=== PATIENT | female | born 1960 | race Caucasian/White ===

== ENCOUNTER 2024-12-12 10:04 | Outpatient (CLI) | payer BC, SELFPAY ==
--- OUTSIDE RECORDS SUMMARY | 2024-12-12 11:06 | XMS_ITS | Clinical Summary ---
Author Organization [facility] Address [address] [place] [id number] Care Team Providers Care Package Designer Name Role Phone Pcp, No Primary Care Provider Unavailabl e Allergies No known active allergies Medications multivitamin (MVI) tablet Take 1 tablet by mouth once daily. 0 2 Active fish oil-omega-3 fatty acids (FISH OIL) 1,200-360 mg cap Take 1 capsule by mouth once daily. 0 2 Active cyanocobalamin (VITAMIN B-12) 1,000 mcg tablet Take 1 tablet by mouth once daily. 0 2 Active polyethylene glycol-electrol yte 236-22.74-6.74 -5.86 gram suspensionIndic ations:Encounte r for screening colonoscopy Drink 2 liters (half the bottle) the day before the procedure and 2 liters (half the bottle) 6 hours prior to procedure. 4000 mL 5 Active varenicline (CHANTIX STARTING MONTH BOX) 0.5 (11)-1 (42) mg tablet Take one 0.5mg tab daily for 3 days, then one 0.5mg tab twice daily for 4 days, then one 1mg tab twice daily. 1 Packet 0 3 12/06/19 25 Discontinu ed(*Med complete/R egimen complete/L evel of care change) varenicline (CHANTIX CONTINUING MONTH BOX) 1 mg tablet Take 1 mg by mouth 2 times daily with meals. 60 tablet 3 3 12/06/19 25 Discontinu ed(*Med complete/R egimen complete/L evel of care change) Active Problems Problem Noted Date Diagnosed Date Adenomatous colon polyp 09/06/2018 Overview (02/18/2019): Colonoscopy 08/2018 polyp on the appendiceal orifice, repeat in 6 months at [facility] Colonoscopy 01/2019 polyps, repeat in 3 years Resolved Problems Problem Noted Date Diagnosed Date Resolved Date Menorrhagia 04/08/2012 12/05/2024 Tobacco use disorder 04/08/2012 025 Encounters Date Type Department Care Team Description 12/12/2024 Travel 12/05/2024 3:55 PM CDT Office Visit [facility] [address] [place] [address] Henrry Sellers MD Preoperative Exam (Colonoscopy, Dr. Steward, [facility], 12/12/24) 12/05/2024 Travel 2024 Telephone [facility] [address] [place] [address] Nam Steward MD Screening from Last 3 Months Immunizations Immunization Administration Dates Next Due Influenza A (H1N1), Inactivated (Age >=3 Years) 05/03/2009 Influenza, IIV3 (Age >=3 years) 03/25/2012 Influenza, IIV4 04/19/2021 Measles 11/01/1976 Family History Medical History Relation Name Comments Good Health Daughter 1 Good Health Daughter 2 Good Health Son Cancer-colon No Family History Relation Name Status Comments Daughter 1 Alive Daughter 2 Alive Son Alive Social History Tobacco Use Types Packs/Day Years Used Date Smoking Tobacco: Former Smokeless Tobacco: Never Tobacco Cessation:Counseling Given: Yes Alcohol Use Standard Drinks/Week Comments No 0 (1 standard drink = 0.6 oz pur e alcohol) Social Connections Answer Date Recorded Do you often feel lonely or isolated from those around you? 0 12/05/2024 Financial Resource Strain Answer Date R ecorded Difficulty of Paying Living Expenses 3 12/05/2024 Difficulty of Paying Living Expenses Not on file 12/05/2024 Food Insecurity Answer Date Recorded Do you worry your food will run out before you are able to buy more? 1 12/05/2024 Transportation Needs Answer Date Record ed Does lack of transportation keep you from medica l appointments? 1 12/05/2024 Does lack of transportation keep you from work, meetings or getting things that you need? 1 12/05/2024 Housing Stability Answer Date Recorded What is your housing situation today? 1 12/05/2024 Utilities Answer Date Recorded Do you have trouble paying f or utilities (for example, heat, electricity, water, phone)? 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 Gender Identity Not on file Sexual Orientation Not on file Obstetrics History Para Term AB IAB SAB Ectopic Multiple Livin g Live Births 3 3 3 Date Outcome GA Total Labor Labor/2nd/3rd Weight Sex Type Anes PTL Alena A1 A5 Name Clin Para Para Para Last Filed Vital Signs Vital Sign Reading Time Taken Comments Blood Pressure 117/80 12/05/2024 3:18 PM CDT Pulse 87 12/05/2024 3:18 PM CDT Temperature 36.8 C (98.2 F) 12/05/2024 3:18 PM CDT Respiratory Rate - - Oxygen Saturation 93% 12/05/2024 3:18 PM CDT Inhaled Oxygen Concentration - - Weight 75.4 kg (166 lb 4.8 oz) 12/05/2024 3:18 P M CDT Height 156.2 cm (5' 1.5) 12/05/2024 3:18 PM CDT Body Mass Index 30.91 12/05/2024 3:18 PM CDT Plan of Treatment Health Maintenance Due Date Last Done Comments Tdap 1972 Depression screening for age 12+ 1973 HIV for age 15-65 1976 Hepatitis C screening for age 18-79 11/25/1979 Tetanus booster 1981 Lipids for age 45-75 2006 Mammogram for age 45-75 2006 Pneumococcal series for age 50+ (1 of 1 - PCV) 11/25/2011 Zoster (shingles) series for age 50+ (1 of 2) 11/25/2011 Pap test for age 21-65 04/08/2015 04/08/2012 RSV vaccine for adults or (1 - Risk 60-74 years 1-dose series) 2021 Colonoscopy through age 75 02/17/202212/12, 02/17/2019, 02/17/2019, Additional history exists COVID-19 vaccine series ( season) 2024 07/27/2020, 06/28/2020 Influenza Vaccine (Season Ended) 2025 04/19/2021, 03/25/2012 BMI (ht and wt on same day) for age 18+ 12/05/2025 12/05/2024 Hepatitis B series for 19+ Aged Out N o longer eligible based on patient's age to complete this topic Procedures Procedure Name Priority Date/Time Associated Diagnosis Comments COLONOSCOPY SCREENING Routine 12/12/2024 7:18 AM CDT Encounter for screening colonoscopy SUPERVISOR CO[employer] HANDLING THIN PREP PAP SCREEN IMAGED Routine 04/08/2012 5:10 PM CDT Screening for malignant neoplasm of the cervix from Last 3 Months or Most Recently Relevant to Health Maintenance Results * COLONOSCOPY SCREENING (02/17/2019 12:00 AM CDT) Nam Steward MD GI PROCEDURE ORD Edited R esult - Final * SUPERVISOR COAL HANDLING THIN PREP PAP SCREEN IMAGED (04/08/2012 5:10 PM CDT) CYTOLOGY CYTOPATHOLOGY REPORT [facility] Status: Final Status [id number] CLINICAL INFORMATION Last Date of LMP :02/16/12 Last Pap Date :unknown Last Pap Result :NIL ABN [place]/Bx Past 5 YRS :None Hormone Usage :None Menstrual Status :Regular Periods [place]/Bx done today :No Additional Information :None given HPV Request :HPV if ASCUS SPECIMEN SOURCE :Cervical/vaginal ThinPrep Vial, screening SPECIMEN ADEQUACY :Satisfactory for evaluation Endocervical component present. INTERPRETATION/RES ULT Negative for intraepithelial lesion or malignancy (NIL) Cytology 1st Screener :oliver Signed by :oliver This specimen was screened by the FDA approved ThinPrep Imaging System and manually reviewed. NOTE: The Pap test is a screening technique, not a diagnostic procedure. It is used primarily to screen for squamous cancers and precursor lesions. Published studies have shown that it is subject to both false negative and false positive results. The pap test should not be used as the sole means to diagnose or exclude pre-malignant and malignant lesions. COLLECTED:04/08/12 ACCESSIONED: 04/09/12 SIGNED: 04/11/12 [facility] PAP [place] CODE NIL [facility] Tissue specimen (specimen) (Cervical/Vagina l) 04/08/2012 5:10 PM CDT 04/08/2012 5:09 PM CDT Josephine Jimenez PATHOLOGY/CYTOLOGY Vicky l Result [facility] [place] ZIP [id number] [address] [place] [address] from Last 3 Months or Most Recently Relevant to Health Maintenance Insurance [facility] Care Teams Package Designer Relationship Specialty Start Date End Date Pcp, No . PCP - General 07/02/24
--- NOTE | 2024-12-12 12:34 | P.ANES_ITS ---
Anesthesia Charges Start Date/Time Anesthesia Start Date: 12/12/24 Anesthesia Start Time: 12:08 Stop Date/Time Anesthesia Stop Date: 12/12/24 Anesthesia Stop Time: 12:32 Coding CPT Codes CPT Codes: PAZ LWR INTST SCR COLSC - 22216 ([id number]) P2 - PATIENT W/MILD SYST DISEASE, QX - HOOP MAKER HELPER MACHINE SVC W/ MD MED DIRECTION, QK - CIRCULATION TENDER 2-4 CNCRNT ANES PROC
--- NOTE | 2024-12-12 12:34 | W.ANESCHARGE ---
Anesthesia Charges Start Date/Time Anesthesia Start Date: 12/12/24 Anesthesia Start Time: 12:08 Stop Date/Time Anesthesia Stop Date: 12/12/24 Anesthesia Stop Time: 12:32 Coding CPT Codes CPT Codes: PAZ LWR INTST SCR COLSC - 18612 ([id number]) P2 - PATIENT W/MILD SYST DISEASE, QX - ATHLETIC EVENTS SCORER SVC W/ MD MED DIRECTION, QK - WATER RESOURCE PROJECT MANAGER 2-4 CNCRNT ANES PROC
--- NOTE | 2024-12-12 12:40 | P.ANES_ITS ---
Anesthesia Charges Start Date/Time Anesthesia Start Date: 12/12/24 Anesthesia Start Time: 12:08 Stop Date/Time Anesthesia Stop Date: 12/12/24 Anesthesia Stop Time: 12:32 Coding CPT Codes CPT Codes: ANES LWR INTST SCR COLSC - 75391 ([id number]) P2 - PATIENT W/MILD SYST DISEASE, QK - NECK PINNER 2-4 CNCRNT ANES PROC, QX - SIZE WORKER SVC W/ MD MED DIRECTION
--- NOTE | 2024-12-12 12:40 | W.ANESCHARGE ---
Anesthesia Charges Start Date/Time Anesthesia Start Date: 12/12/24 Anesthesia Start Time: 12:08 Stop Date/Time Anesthesia Stop Date: 12/12/24 Anesthesia Stop Time: 12:32 Coding CPT Codes CPT Codes: ANES LWR INTST SCR COLSC - 74192 ([id number]) P2 - PATIENT W/MILD SYST DISEASE, QK - ENVIRONMENTAL PROGRAMS MANAGER 2-4 CNCRNT ANES PROC, QX - RESTAURANT HOSPITALITY MANAGER SVC W/ MD MED DIRECTION
--- OUTSIDE RECORDS SUMMARY | 2024-12-13 00:48 | XMS_ITS | Clinical Summary ---
Author Organization [facility] Address [address] [place] [id number] Care Team Providers Care Site Inspector Name Role Phone Pcp, No Primary Care [...] Date Type Department Care Team Description 12/12/2024 10:00 AM CDT Office Visit [facility] [address] [place] [address] Nam Steward MD Arrived 12/12/2024 Travel 12/05/2024 3:55 PM CDT Office Visit [facility] [address] [place] [address] Henrry Sellers MD Preoperative Exam (Colonoscopy, Dr. 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 Gender Identity Not on file Sexual Orientation [...] - Risk 60-74 years 1-dose series) 2021 COVID-19 vaccine series ( season) 2024 07/27/2020, 06/28/2020 Influenza Vaccine (Season Ended) 2025 04/19/2021, 03/25/2012 BMI (ht and wt on same day) for age 18+ 12/05/2025 12/05/2024 Colonoscopy through age 75 12/13/202712/12, 12/12/2024, 02/17/2019, Additional history exists Hepatitis B series for 19+ Aged Out N o longer eligible based on patient's age to complete this topic Procedures Procedure Name Priority Date/Time Associated Diagnosis Comments COLONOSCOPY SCREENING Routine 12/12/2024 7:18 AM CDT Encounter for screening colonoscopy CASINO DEALER THIN PREP PAP SCREEN IMAGED Routine 04/08/2012 5:10 PM CDT Screening for malignant neoplasm of the cervix from Last 3 Months or Most Recently Relevant to Health Maintenance Results * COLONOSCOPY SCREENING (02/17/2019 12:00 AM CDT) us Nam Steward MD GI PROCEDURE ORD Edited R esult - Final * CASINO DEALER THIN PREP PAP SCREEN IMAGED (04/08/2012 5:10 PM CDT) CYTOLOGY CYTOPATHOLOGY REPORT [facility] Status: Final Status [id number] CLINICAL INFORMATION Last Date of LMP :02/16/12 Last Pap Date :unknown Last Pap Result :NIL ABN [place]/Bx Past 5 YRS :None Hormone Usage :None Menstrual Status :Regular Periods [place]/Bx done today :No Additional Information :None given [...] malignant lesions. COLLECTED:04/08/12 ACCESSIONED: 04/09/12 SIGNED: 04/11/12 [facility] PAP [place] CODE NIL [facility] Tissue specimen (specimen) (Cervical/Vagina l) 04/08/2012 5:10 PM CDT 04/08/2012 5:09 PM CDT Josephine Jimenez PATHOLOGY/CYTOLOGY Vicky l Result [facility] INTERNAL ZIP [id number] [place] [address] from Last 3 Months or Most Recently Relevant to Health Maintenance Insurance [facility] Care Teams Site Inspector Relationship Specialty Start Date End Date Pcp, No . PCP - General 07/02/24
== END 2024-12-12 10:05 | disposition home or self-care (01) ==
LOC: OP CLINIC 10:08
PROVIDERS: Visit Provider Internal Medicine Gastroenterology
DX: Z12.11 Encounter for screening for malignant neoplasm of colon (principal); Z86.0100 Personal history of colon polyps, unspecified
CPT/HCPCS: 00812; 45378; J2704